=== PATIENT | male | born 1955 | race Hispanic/Latino ===

== ENCOUNTER 2021-12-09 08:10 | Outpatient (CLI) | payer MEDICARE ==
[2021-12-09] MEDS ORDERED: Iopamidol-370 76% 500 ML 1 ML ONE (14:02)
== END 2021-12-09 08:11 | disposition home or self-care (01) ==
LOC: BICCT 08:10
PROVIDERS: ATTEND Urology
DX: R31.29 Other microscopic hematuria (principal); N28.1 Cyst of kidney, acquired; R16.0 Hepatomegaly, not elsewhere classified
CPT/HCPCS: 74178; 82565; Q9967